=== PATIENT | female | born 1985 | race Caucasian/White ===

== ENCOUNTER 2018-03-23 22:47 | Observation (INO) | payer OTHER ==
--- NOTE | 2018-03-24 00:01 | XR ---
EXAMINATION TYPE: XR chest 2V DATE OF EXAM: 03/23/2018 COMPARISON: NONE HISTORY: Chest pain TECHNIQUE: Frontal and lateral views of the chest are obtained. FINDINGS: Heart and mediastinum are normal. Lungs are clear. Diaphragm is normal. Bony thorax is int act. IMPRESSION: Normal chest.
[2018-03-24 01:51] LABS: Basophils # (A) 0.1 k/uL (0-0.2); Basophils % (A) 1 %; Eosinophils # (A) 0.4 k/uL (0-0.7); Eosinophils % (A) 5 %; HCT 36.9 % (34.0-46.0); HGB 13.4 gm/dL (11.4-16.0); Lymphocytes # (A) 2.7 k/uL (1.0-4.8); Lymphocytes % (A) 32 %; MCH 32.1 pg (25.0-35.0); MCHC 36.2 g/dL (31.0-37.0); MCV 88.7 fL (80.0-100.0); Mean Platelet Volume 7.9; Monocytes # (A) 0.5 k/uL (0-1.0); Monocytes % (A) 6 %; Neutrophils # (A) 4.6 k/uL (1.3-7.7); Neutrophils % (A) 55 %; Platelet Count 211 k/uL (150-450); RBC 4.16 m/uL (3.80-5.40); RDW 13.3 % (11.5-15.5); WBC 8.4 k/uL (3.8-10.6)
[2018-03-24 02:07] LABS: D-Dimer 0.45 mg/L FEU (<0.60); Partial Thromboplastin Time 23.6 sec (22.0-30.0); Prothrombin Time 9.9 sec (9.0-12.0)
[2018-03-24 02:08] LABS: ALT 34 U/L (9-52); AST 30 U/L (14-36); Albumin 4.5 g/dL (3.5-5.0); Alkaline Phosphatase 46 U/L (38-126); Anion Gap 14 mmol/L; Blood Urea Nitrogen 12 mg/dL (7-17); Calcium 9.3 mg/dL (8.4-10.2); Carbon Dioxide 22 mmol/L (22-30); Chloride 104 mmol/L (98-107); Glucose 98 mg/dL (74-99); Potassium 4.2 mmol/L (3.5-5.1); Sodium 140 mmol/L (137-145); Total Bilirubin 0.5 mg/dL (0.2-1.3); Total Protein 7.6 g/dL (6.3-8.2)
[2018-03-24 02:18] LABS: Creatine Kinase 47 U/L (30-135)
[2018-03-24 02:28] LABS: Creatine Kinase MB 0.3 ng/mL (0.0-2.4)
[2018-03-24 02:32] LABS: Troponin I <0.012 ng/mL (0.000-0.034)
--- NOTE | 2018-03-24 03:40 | ED ---
Chest Pain HPI - General Chief Complaint: Chest Pain Stated Complaint: Chest pain Time Seen by Provider: 03/24/18 01:16 Source: patient Mode of arrival: ambulatory Limitations: no limitations - History of Present Illness Initial Comments: Early 2 years old female complains about chest pain she said chest pain ongoing for about a month now he got worse today now she said it is worse with deep breaths she denies any history of pulmonary embolism she denies any history of DVT no history of diabetes or hypertension she does not smoke he denies any use of tobacco control pills fever no chills she is not bringing up any phlegm and no trauma to the chest as well - Related Data Previous Rx's Medication Instructions Recorded Ibuprofen [Motrin] 600 mg PO Q6HR PRN #20 tab 11/19/15 Allergies Allergy/AdvReac Type Severity Reaction Status Date / Time aspirin Allergy Unknown Verified 03/23/18 23:39 cough medication Allergy Unknown Uncoded 03/23/18 23:39 Review of Systems ROS Statement: Those systems with pertinent positive or pertinent negative responses have been documented in the HPI. ROS Other: All systems not noted in ROS Statement are negative. EKG Findings - EKG Comments: EKG Findings:: EKG is a sinus bradycardia ventricular rate is 52 AR interval is 138 QRS duration is 100 QT/QTc is 44/383 review of this EKG rules out any STEMI noticed some T-wave inversion is quite symmetrically V1 and V2 is somewhat tall T waves in now V4 V5 and V6 Past Medical History Past Medical History: No Reported History History of Any Multi-Drug Resistant Organisms: None Reported Past Surgical History: Section, Cholecystectomy Past Psychological History: No Psychological Hx Reported Smoking Status: Never smoker Past Alcohol Use History: Occasional Past Drug Use History: None Reported General Exam - General Exam Comments Initial Comments: General: The patient is awake and alert, in no distress, and does not appear acutely ill. Skin: Skin is warm and dry and no rashes or lesions are noted. Eye: Pupils are equal, round and reactive to light, extra-ocular movements are intact; there is normal conjunctiva bilaterally. Ears, nose, mouth and throat: There are moist mucous membranes and no oral lesions. Neck: The neck is supple, there is no tenderness or JVD. Cardiovascular: There is a regular rate and rhythm. No murmur, rub or gallop is appreciated. Respiratory: To auscultation bilateral, no wheezing no rhonchi no distress respiratory rivera noticed Gastrointestinal: Soft, non-distended, non-tender abdomen without masses or organomegaly noted. There is no rebound or guarding present. Bowel sounds are unremarkable. Back: There is no tenderness to palpation in the midline. There is no obvious deformity. Musculoskeletal: Normal ROM, no tenderness, There is no pedal edema. There is no calf tenderness or swelling. No cords were appreciated. Neurological: CN II-XII intact, Cranial nerves III through XII are intact. There are no obvious motor or sensory deficits. Coordination appears grossly intact. Speech is normal. Psychiatric: Cooperative, appropriate mood & affect, normal judgment. Limitations: no limitations Course Vital Signs 03/23/18 03/24/18 03/24/18 23:37 01:13 01:16 Temperature 98.5 F Pulse Rate 57 L 61 Respiratory 18 16 16 Rate Blood Pressure 139/72 118/66 O2 Sat by Pulse 100 100 Oximetry 03/24/18 03/24/18 02:14 03:05 Temperature 97.5 F L 97.8 F Pulse Rate 48 L 63 Respiratory 16 16 Rate Blood Pressure 118/66 98/64 O2 Sat by Pulse 100 97 Oximetry Upon reassessment noticed she still has a pain 3/10 and d-dimer is unremarkable CBC, CMP, troponin, chest x-ray are absolutely unremarkable review of this EKG reveals some T-wave inversion in lead V1 and V2 considering she still has chest pain and some EKG changes on admit her observation consult cardiology she be admitted to Dr. Collier and cardiology be consulted Disposition Clinical Impression: Chest pain Disposition: ADMITTED IP TO THIS HOSP Condition: Good Referrals: Feliciano Crawley DO [Primary Care Provider] - 1-2 days
[2018-03-24] MEDS ORDERED: MORPHINE SULFATE 2 MG/ML SYRINGE IVP PRN (03:47)
[2018-03-24] MEDS ORDERED: NITROGLYCERIN SL TABS 0.4 MG TAB SUBLINGUAL PRN (03:47)
[2018-03-24 05:13] VITALS: BMI 30.9
--- NOTE | 2018-03-24 07:01 | P.CRDCN ---
History of Present Illness Consult reason: chest pain History of present illness: 32-year-old female presenting with recurrent chest discomfort in the right infraclavicular area, recurrent and getting worse especially with taking a deep breath and going through to the back in the scapular area on the right side. Denies any abdominal pain or any abdominal symptoms. She does have a cough No cardiac history no hypertension diabetes Family history of coronary artery disease, premature Heart sounds are normal Labs are reviewed and are normal first cardiac enzyme is normal d-dimer is normal Suggest Serial cardiac enzymes Repeat ECG 2-D echo and Doppler study Evaluate for noncardiac causes of right-sided atypical chest discomfort per internal medicine Past Medical History Past Medical History: Asthma History of Any Multi-Drug Resistant Organisms: None Reported Past Surgical History: Section, Cholecystectomy Past Anesthesia/Blood Transfusion Reactions: No Reported Reaction Past Psychological History: No Psychological Hx Reported Smoking Status: Never smoker Past Alcohol Use History: Occasional Past Drug Use History: None Reported - Past Family History Father Family Medical History: CVA/TIA, Myocardial Infarction ([place]) Additional Family Medical History / Comment(s): [place] at age late 40's Medications and Allergies Home Medications Medication Instructions Recorded Confirmed Type Ibuprofen [Motrin] 600 mg PO Q6HR PRN #20 tab 11/19/15 03/24/18 Rx Allergies Allergy/AdvReac Type Severity Reaction Status Date / Time aspirin Allergy Severe Anaphylaxis Verified 03/24/18 05:13 cough medication Allergy Severe Anaphylaxis Uncoded 03/24/18 05:13 Physical Exam Vitals: Vital Signs Temp Pulse Pulse Resp BP BP Pulse Ox 03/24/18 05:23 58 L 16 03/24/18 04:40 98.2 F 73 16 106/70 99 03/24/18 04:10 97.8 F 67 15 104/68 98 03/24/18 03:05 97.8 F 63 16 98/64 97 03/24/18 02:14 97.5 F L 48 L 16 118/66 100 03/24/18 01:16 61 16 118/66 100 03/24/18 01:13 16 03/23/18 23:37 98.5 F 57 L 18 139/72 100 Intake and Output 03/23/18 03/24/18 03/24/18 22:59 06:59 14:59 Other: # Voids 1 Weight 81.647 kg Results 03/24/18 01:20 03/24/18 01:20 Cardiac Enzymes 03/24/18 03/24/18 Range/Units 01:20 01:20 AST 30 (14-36) U/L CK-MB (CK-2) 0.3 (0.0-2.4) ng/mL Troponin I <0.012 (0.000-0.034) ng/mL Coagulation 03/24/18 Range/Units 01:20 PT 9.9 (9.0-12.0) sec APTT 23.6 (22.0-30.0) sec CBC 03/24/18 Range/Units 01:20 WBC 8.4 (3.8-10.6) k/uL RBC 4.16 (3.80-5.40) m/uL Hgb 13.4 (11.4-16.0) gm/dL Hct 36.9 (34.0-46.0) % Plt Count 211 (150-450) k/uL Comprehensive Metabolic Panel 03/24/18 Range/Units 01:20 Sodium 140 (137-145) mmol/L Potassium 4.2 (3.5-5.1) mmol/L Chloride 104 (98-107) mmol/L Carbon Dioxide 22 (22-30) mmol/L BUN 12 (7-17) mg/dL Creatinine 0.70 (0.52-1.04) mg/dL Glucose 98 (74-99) mg/dL Calcium 9.3 (8.4-10.2) mg/dL AST 30 (14-36) U/L ALT 34 (9-52) U/L Alkaline Phosphatase 46 (38-126) U/L Total Protein 7.6 (6.3-8.2) g/dL Albumin 4.5 (3.5-5.0) g/dL Current Medications Generic Name Dose Route Start Last Admin Trade Name Freq PRN Reason Stop Dose Admin Morphine Sulfate 2 mg 03/24/18 03:47 Morphine Sulfate (Inj) IVP Q5M PRN Chest Pain Nitroglycerin 0.4 mg 03/24/18 03:47 Nitrostat SUBLINGUAL Q5M PRN Chest Pain Intake and Output 03/23/18 03/24/18 03/24/18 22:59 06:59 14:59 Other: # Voids 1 Weight 81.647 kg 03/24/18 01:20 03/24/18 01:20
--- NOTE | 2018-03-24 09:14 | P.CRDCN ---
History of Present Illness History of present illness: Mrs. Jensen is a pleasant 32-year-old female past medical history significant for asthma. She denies history of coronary artery disease, hypertension, dyslipidemia or diabetes mellitus. She does have family history of premature heart disease. We've asked to see her in consultation for complaints of chest discomfort. She states she has these pains intermittently over the previous month or so. The pain is located in the right clavicle region and radiates through to the right scapula. The pain is described as sharp and is associated with shortness of breath. The pain comes on with no specific aggravating factor. Yesterday morning she noticed the pain starting in persisted throughout the day which prompted her to seek medical attention. She denies associated dizziness, palpitations, nausea, vomiting or diaphoresis. The pain is made worse with deep inspiration, coughing or sneezing. The pain subsided once she arrived to the hospital and has not returned since. EKG reveals sinus mechanism heart rate 52 with nonspecific T-wave abnormality. No acute ST depression or elevation. Chest x-ray is negative for an acute cardiopulmonary process. Laboratory data reviewed, hemoglobin 13.4, platelets 211, d-dimer 0.45, sodium 140, potassium 4.2, magnesium 2.0, creatinine 0.7, cardiac enzymes negative 1. She takes no daily medications. Review of Systems At the time of my exam: CONSTITUTIONAL: Denies fever. Denies chills. EYES: Denies blurred vision. Denies vision changes. Denies eye pain. EARS, NOSE, MOUTH & THROAT: Denies headache. Denies sore throat. Denies ear pain. CARDIOVASCULAR: Denies chest pain. Denies shortness of breath. Denies orthopnea. Denies PND. Denies palpitations. RESPIRATORY: Denies cough. GASTROINTESTINAL: Denies abdominal pain. Denies diarrhea. Denies constipation. Denies nausea. Denies vomiting. MUSCULOSKELETAL: Denies myalgias. INTEGUMENTARY: Denies pruitis. Denies rash. NEUROLOGIC: Denies numbness. Denies tingling. Denies weakness. PSYCHIATRIC: Denies anxiety. Denies depression. ENDOCRINE: Denies fatigue. Denies weight change. Denies polydipsia. Denies polyurina. GENITOURINARY: Denies burning, hematuria or urgency with micturation. HEMATOLOGIC: Denies history of anemia. Denies bleeding. Past Medical History Past Medical History: Asthma History of Any Multi-Drug Resistant Organisms: None Reported Past Surgical History: Section, Cholecystectomy Past Anesthesia/Blood Transfusion Reactions: No Reported Reaction Past Psychological History: No Psychological Hx Reported Smoking Status: Never smoker Past Alcohol Use History: Occasional Past Drug Use History: None Reported - Past Family History Father Family Medical History: CVA/TIA, Myocardial Infarction ([place]) Additional Family Medical History / Comment(s): [place] at age late 40's Medications and Allergies Home Medications Medication Instructions Recorded Confirmed Type Ibuprofen [Motrin] 600 mg PO Q6HR PRN #20 tab 11/19/15 03/24/18 Rx Allergies Allergy/AdvReac Type Severity Reaction Status Date / Time aspirin Allergy Severe Anaphylaxis Verified 03/24/18 08:53 cough medication Allergy Severe Anaphylaxis Uncoded 03/24/18 05:13 Physical Exam Vitals: Vital Signs Temp Pulse Pulse Pulse Resp BP BP 03/24/18 08:00 98.0 F 62 14 104/55 03/24/18 05:23 58 L 16 03/24/18 04:40 98.2 F 73 16 106/70 03/24/18 04:10 97.8 F 67 15 104/68 03/24/18 03:05 97.8 F 63 16 98/64 03/24/18 02:14 97.5 F L 48 L 16 118/66 03/24/18 01:16 61 16 118/66 03/24/18 01:13 16 03/23/18 23:37 98.5 F 57 L 18 139/72 Pulse Ox 03/24/18 08:00 99 03/24/18 05:23 03/24/18 04:40 99 03/24/18 04:10 98 03/24/18 03:05 97 03/24/18 02:14 100 03/24/18 01:16 100 03/24/18 01:13 03/23/18 23:37 100 Intake and Output 03/23/18 03/24/18 03/24/18 22:59 06:59 14:59 Other: # Voids 1 Weight 81.647 kg Blood pressure 104/55 heart rate 62 afebrile maintaining oxygen saturation on room air GENERAL: This is a 32-year-old female in no apparent distress at the time of my examination. HEENT: Head is atraumatic, normocephalic. Pupils are equal, round. Sclerae anicteric. Conjunctivae are clear. Mucous membranes of the mouth are moist. Neck is supple. There is no jugular venous distention. No carotid bruit is heard. LUNGS: Clear to auscultation no wheezes, rales or rhonchi. No chest wall tenderness is noted on palpation or with deep breathing. HEART: Regular rate and rhythm without murmurs, rubs or gallops. S1 and S2 heard. ABDOMEN: Soft, nontender. Bowel sounds are heard. No organomegaly noted. EXTREMITIES: No evidence of peripheral edema and no calf tenderness noted. VASCULAR: Radial and dorsalis pedis pulses palpated, no evidence of clubbing. NEUROLOGIC: Patient is awake, alert and oriented x3. Results 03/24/18 01:20 03/24/18 01:20 Cardiac Enzymes 03/24/18 03/24/18 Range/Units 01:20 01:20 AST 30 (14-36) U/L CK-MB (CK-2) 0.3 (0.0-2.4) ng/mL Troponin I <0.012 (0.000-0.034) ng/mL Coagulation 03/24/18 Range/Units 01:20 PT 9.9 (9.0-12.0) sec APTT 23.6 (22.0-30.0) sec CBC 03/24/18 Range/Units 01:20 WBC 8.4 (3.8-10.6) k/uL RBC 4.16 (3.80-5.40) m/uL Hgb 13.4 (11.4-16.0) gm/dL Hct 36.9 (34.0-46.0) % Plt Count 211 (150-450) k/uL Comprehensive Metabolic Panel 03/24/18 Range/Units 01:20 Sodium 140 (137-145) mmol/L Potassium 4.2 (3.5-5.1) mmol/L Chloride 104 (98-107) mmol/L Carbon Dioxide 22 (22-30) mmol/L BUN 12 (7-17) mg/dL Creatinine 0.70 (0.52-1.04) mg/dL Glucose 98 (74-99) mg/dL Calcium 9.3 (8.4-10.2) mg/dL AST 30 (14-36) U/L ALT 34 (9-52) U/L Alkaline Phosphatase 46 (38-126) U/L Total Protein 7.6 (6.3-8.2) g/dL Albumin 4.5 (3.5-5.0) g/dL Current Medications Generic Name Dose Route Start Last Admin Trade Name Freq PRN Reason Stop Dose Admin Morphine Sulfate 2 mg 03/24/18 03:47 Morphine Sulfate (Inj) IVP Q5M PRN Chest Pain Nitroglycerin 0.4 mg 03/24/18 03:47 Nitrostat SUBLINGUAL Q5M PRN Chest Pain Intake and Output 03/23/18 03/24/18 03/24/18 22:59 06:59 14:59 Other: # Voids 1 Weight 81.647 kg 03/24/18 01:20 03/24/18 01:20 Assessment and Plan Assessment: ASSESSMENT 1. Pleuritic chest pain, atypical for acute coronary event. 2. History of asthma PLAN Continue to obtain serial cardiac enzymes to rule out an acute coronary events. Obtain 2-D echocardiogram and Doppler study to assess cardiac structure and function. May feed the patient. Increase activity and assess for ongoing symptoms of chest discomfort. Thank you kindly for this consultation. Nurse Practitioner note has been reviewed, I agree with a documented findings and plan of care. Patient was seen and examined.
[2018-03-24 09:50] LABS: Cholesterol 148 mg/dL (<200); HDL Cholesterol 46 mg/dL (40-60); LDL Cholesterol,Calculated 92 mg/dL (0-99); Triglycerides 51 mg/dL (<150)
[2018-03-24 10:03] LABS: Creatine Kinase 36 U/L (30-135)
[2018-03-24 10:16] LABS: Creatine Kinase MB 0.2 ng/mL (0.0-2.4); Troponin I <0.012 ng/mL (0.000-0.034)
--- NOTE | 2018-03-24 10:41 | ECHOF ---
Referral Reason:chest pain MEASUREMENTS -------- HEIGHT: 162.6 cm WEIGHT: 81.7 kg BP: 106/70 RVIDd: 2.9 cm (< 3.3) IVSd: 1.0 cm (0.6 - 1.1) LVIDd: 4.5 cm (3.9 - 5.3) LVPWd: 1.0 cm (0.6 - 1.1) IVSs: 1.5 cm LVIDs: 3.0 cm LVPWs: 1.4 cm LA Diam: 3.0 cm (2.7 - 3.8) LAESV Index (A-L): 30.63 ml/m Ao Diam: 2.8 cm (2.0 - 3.7) AV Cusp: 2.0 cm (1.5 - 2.6) MV EXCURSION: 17.766 mm (> 18.000) MV EF SLOPE: 122 mm/s (70 - 150) EPSS: 0.4 cm MV E Stomr: 1.09 m/s MV DecT: 227 ms MV A Storm: 0.56 m/s MV E/A Ratio: 1.96 RAP: 5.00 mmHg RVSP: 23.43 mmHg FINDINGS -------- Sinus rhythm. This was a technically good study. The left ventricular size is normal. Left ventricular wall thickness is normal. Overall left vent ricular systolic function is normal with, an EF between 60 - 65 %. The right ventricle is normal in size. The left atrial size is normal. The right atrium is normal in size. 3 ml of Lumason was utilized for enhancement of images. The aortic valve is trileaflet and appears structurally normal. The mitral valve is normal. Mild tricuspid regurgitation present. Right ventricular systolic pressure is normal at < 35 mmHg. There is no pulmonic regurgitation present. The aortic root size is normal. Normal inferior vena cava with normal inspiratory collapse consistent with estimated right atrial pre ssure of 5 mmHg. There is no pericardial effusion. CONCLUSIONS -------- 1. Sinus rhythm. 2. This was a technically good study. 3. The left ventricular size is normal. 4. Left ventricular wall thickness is normal. 5. Overall left ventricular systolic function is normal with, an EF between 60 - 65 %. 6. The right ventricle is normal in size. 7. The left atrial size is normal. 8. The right atrium is normal in size. 9. 3 ml of Lumason was utilized for enhancement of images. 10. The aortic valve is trileaflet and appears structurally normal. 11. The mitral valve is normal. 12. Mild tricuspid regurgitation present. 13. Right ventricular systolic pressure is normal at < 35 mmHg. 14. There is no pulmonic regurgitation present. 15. The aortic root size is normal. 16. Normal inferior vena cava with normal inspiratory collapse consistent with estimated right atrial pressure of 5 mmHg. 17. There is no pericardial effusion. MAGICIAN/ILLUSIONIST: Haylee Bautista RDCS
[2018-03-24 12:23] VITALS: RESP 16; TEMP 98.1
[2018-03-24] MEDS ORDERED: LORATADINE-PSEUDOEPH 5-120 MG 1 EACH TAB.ER.12H PO SCH (13:00)
--- NOTE | 2018-03-24 13:14 | CT ---
EXAMINATION TYPE: CT angio chest DATE OF EXAM: 03/24/2018 COMPARISON: NONE HISTORY: Right sided chest pain with shortness of breath CT DLP: 293.4 mGycm. Automated Exposure Control for Dose Reduction was Utilized. CONTRAST: CTA scan of the thorax is performed with IV Contrast, patient injected with 100 mL of Isovue 370, pul monary embolism protocol. MIP Images are created on CT scanner and reviewed. FINDINGS: LUNGS: The lungs are grossly clear, there is no concerning parenchymal mass or nodule identified. The re is minimal bibasilar subsegmental dependent atelectasis noted. There is no pleural effusion or pn eumothorax seen. The tracheobronchial tree is patent. MEDIASTINUM: There is satisfactory enhancement of the pulmonary artery and its branches, there is no CT evidence for pulmonary embolism. There are no greater than 1 cm hilar or mediastinal lymph nodes. No cardiomegaly or pericardial effusion is seen. OTHER: There is a 2 mm nonobstructing left midpole renal calculus. Surgical clips are noted within th e gallbladder fossa with another solitary surgical clip in the hepatorenal fossa. IMPRESSION: No evidence of pulmonary embolism. No focal consolidation, pleural effusion or pneumothor ax. Minimal bibasilar subsegmental dependent atelectasis.
[2018-03-24] MEDS ORDERED: ONDANSETRON 4 MG/2 ML VIAL IVP STA (14:54)
[2018-03-24 15:06] LABS: Creatine Kinase 98 U/L (30-135)
[2018-03-24 15:20] LABS: Creatine Kinase MB 1.9 ng/mL (0.0-2.4); Troponin I <0.012 ng/mL (0.000-0.034)
[2018-03-24 16:09] VITALS: BP 96/46; PULSE 63
--- NOTE | 2018-03-24 17:48 | HP ---
HISTORY AND PHYSICAL HISTORY AND PHYSICAL AND DISCHARGE SUMMARY: DATE OF ADMISSION: 03/24/2018 DATE OF DISCHARGE: 03/24/2018 PRESENTING COMPLAINT: Chest pain. HISTORY OF PRESENTING COMPLAINT: This is a very pleasant 32-year-old patient of Dr. Crawley in rather good health. Patient's chronic medical conditions include asthma, present in childhood, and allergic rhinitis and seasonal allergies. Patient has had a stuffy nose for a few days, slight cough. Patient noticed that she started having right-sided upper chest pain, especially with sneezing and deep breathing, getting worse. Patient's symptoms started about a month ago and progressively got worse. She was concerned about a cardiac cause and decided to come in for further cardiac workup. There was no left precordial pain not related to exertion, and no radiation otherwise. Patient was admitted for the same. REVIEW OF SYSTEMS: CONSTITUTIONAL: Tired. HEENT: Nasal stuffiness. RESPIRATORY: As above. Slight cough. CARDIOVASCULAR: No precordial pain. GASTROINTESTINAL: None. GENITOURINARY: None. MUSCULOSKELETAL: None. DERMATOLOGICAL: None. HEMATOLOGICAL: None. LYMPHATICS: None. PSYCHIATRY: None. NEUROLOGICAL: None. PAST MEDICAL HISTORY: 1. Asthma. 2. Allergic rhinitis. 3. Seasonal allergies. PAST SURGICAL HISTORY: 1. . 2. Cholecystectomy. SOCIAL HISTORY: No smoking. Alcohol occasionally. Has 3 children at home. 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 FAMILY HISTORY: Stroke, heart attack. HOME MEDICATIONS: Motrin 600 mg q.6 p.r.n. ALLERGIES: 1. ASPIRIN. 2. COUGH MEDICATION. PHYSICAL EXAMINATION: VITAL SIGNS ON PRESENTATION: Temperature 98.5, pulse 57, respiration 18, blood pressure 139/72, pulse ox 100% on room air. GENERAL APPEARANCE: Well built; BMI 30.9. Lying in bed, tired-appearing. EYES: Pupils equal. Conjunctivae normal. HEENT: External appearance of nose and ears normal. Oral cavity normal. NECK: JVD not raised. Mass not palpable. RESPIRATORY: Effort normal. LUNGS: Fair air entry. CARDIOVASCULAR: First and second sounds normal. No edema. ABDOMEN: Soft, nontender. Liver and spleen not palpable. LYMPHATIC: No lymph node palpable in neck or axillae. PSYCHIATRY: Alert and oriented x3. Mood and affect normal. NEUROLOGICAL: Pupils equal. Cranial nerves grossly intact. Power and sensation grossly intact. INVESTIGATIONS: White count 8.4, hemoglobin 13.4. D-dimer 0.45 and 0.67. Potassium 4.2. Troponin x3 negative. EKG normal sinus rhythm. Chest CTA negative for PE. Two-D echocardiogram: good wall motion; no abnormality. Chest x-ray normal. ASSESSMENT: 1. Acute right-sided pleurisy pain, likely viral in nature. 2. Intermittent asthma. 3. Allergic rhinitis. 4. Obesity with body mass index of 30.9. PLAN: Cardiology was consulted. PE was ruled out. Two-D echo was normal. The patient's symptoms are more compatible with acute pleurisy, viral in nature. Patient will be started on Claritin-D. Care was discussed with the patient. Questions were answered. DISCHARGE MEDICATION: Claritin-D 5/120 one tablet twice a day; 14 tablets. FOLLOWUP: Follow up with Dr. Crawley in 3 days. CONSULTATION: Dr. James Pineda from Cardiology. MMLYRICL / ROXANEN: [id number] /
== END 2018-03-24 19:10 | disposition home or self-care (01) ==
LOC: EC 22:47 → 3OBS 03-24 03:48
PROVIDERS: ADMIT Hospitalist; ATTEND Hospitalist
DX: R09.1 Pleurisy (principal); J45.20 Mild intermittent asthma, uncomplicated; E66.9 Obesity, unspecified; Z68.30 Body mass index [BMI] 30.0-30.9, adult; Z82.49 Family history of ischemic heart disease and other diseases of the circulatory system; Z82.3 Family history of stroke; Z88.6 Allergy status to analgesic agent; Z88.8 Allergy status to other drugs, medicaments and biological substances; Z90.49 Acquired absence of other specified parts of digestive tract
CPT/HCPCS: 99285 ×2; 96374; 36415; 93005; 93306; 85379; 80061; 80053; 82550; 82553; 83735; 84484; 85025; 85610; 85730; 71046; 71275; G0378; J2405; Q9950; Q9967

== ENCOUNTER → 2020-02-22 | Outpatient (CLI) | payer OTHER ==
--- NOTE | 2020-02-22 10:15 | XR ---
EXAMINATION TYPE: XR wrist complete RT DATE OF EXAM: 02/22/2020 CLINICAL HISTORY: Right wrist pain after fall TECHNIQUE: Frontal, lateral and oblique images of the right wrist are obtained. Scaphoid view was al so obtained. COMPARISON: None FINDINGS: There is no acute fracture/dislocation evident in the right wrist. The joint spaces in th e right wrist appear within normal limits. The overlying soft tissue appears unremarkable. IMPRESSION: There is no acute fracture or dislocation in the right wrist.
== END | disposition home or self-care (01) ==
LOC: RADXRMAIN 09:55
PROVIDERS: ATTEND Family Medicine
DX: M25.531 Pain in right wrist (principal)

== ENCOUNTER → 2021-12-09 | Outpatient (CLI) | payer OTHER ==
--- NOTE | 2021-12-10 14:12 | MM ---
Reason for exam: screening (asymptomatic). Baseline mammogram. History: Family history of breast cancer in mother. Took hormonal contraceptives for 4 years. Physical Findings: Nurse did not find any significant physical abnormalities on exam. MG 3D Screening Mammo W/Cad Bilateral CC and MLO view(s) were taken. The breast tissue is heterogeneously dense. This may lower the sensitivity of mammography. There is no discrete abnormality. ASSESSMENT: Negative, BI-RAD 1 RECOMMENDATION: Routine screening mammogram of both breasts in 1 year.
== END | disposition home or self-care (01) ==
LOC: RADMAMWWP 11:04
PROVIDERS: ATTEND Family Medicine
DX: Z12.39 Encounter for other screening for malignant neoplasm of breast (principal)
CPT/HCPCS: 77063; 77067

== ENCOUNTER 2022-04-10 12:39 | Emergency (ER) | payer OTHER ==
[2022-04-10 12:47] VITALS: PULSE 61
[2022-04-10] MEDS ORDERED: ONDANSETRON 4 MG/2 ML VIAL IVP STA (13:45)
[2022-04-10] MEDS ORDERED: SODIUM CHLORIDE 0.9% 2,000 ML IV STA (13:45)
[2022-04-10] MEDS ORDERED: MORPHINE SULFATE 4 MG/ML SYRINGE IVP STA (13:48)
[2022-04-10 14:26] LABS: ALT 20 U/L (4-34); AST 23 U/L (14-36); African American GFR (CKD) >90 (>60 ml/min/1.73 sqM); Albumin 4.5 g/dL (3.5-5.0); Alkaline Phosphatase 57 U/L (38-126); Anion Gap 9 mmol/L; Blood Urea Nitrogen 11 mg/dL (7-17); Calcium 9.2 mg/dL (8.4-10.2); Carbon Dioxide 21 mmol/L (22-30); Chloride 108 mmol/L (98-107); Glucose 99 mg/dL (74-99); Lipase 48 U/L (23-300); Non-African American GFR(CKD) >90 (>60 ml/min/1.73 sqM); Potassium 3.6 mmol/L (3.5-5.1); Sodium 138 mmol/L (137-145); Total Bilirubin 1.2 mg/dL (0.2-1.3); Total Protein 7.4 g/dL (6.3-8.2)
--- NOTE | 2022-04-10 14:32 | CT ---
EXAMINATION TYPE: CT abdomen pelvis wo con DATE OF EXAM: 04/10/2022 COMPARISON: None HISTORY: left flank pain CT DLP: 599.7 mGycm Automated exposure control for dose reduction was used. Images obtained from the diaphragm to the floor the pelvis without contrast. The lung bases are clear. No pleural effusion. Heart size is normal. No pericardial effusion. Liver spleen and stomach pancreas appear intact. The bile ducts are not dilated. There are clips from cholecystectomy. There is no adrenal mass. Kidneys have normal size. There is 2 mm calculus lower pole right kidney. T here is mild left-sided hydronephrosis and hydroureter. There is a 3 mm obstructing calculus in the l ower left ureter. The bladder distends smoothly. No inguinal hernia. Uterus is anteverted. There is s mall amount of low-density free fluid in the pelvis. No pelvic mass. The appendix is posterior and ap pears normal. No mesenteric edema. No ascites or free air. No bowel obstruction. There is some lipoma tosis of the right colon. The lumbar vertebrae have normal alignment. Posterior elements are intact. No compression fracture. B mann pelvis is intact. Hip joints are intact. IMPRESSION: Small obstructing calculus distal left ureter with mild left-sided hydronephrosis and hydroureter. No nobstructing right-sided renal calculus. Small amount of low-density free fluid in the pelvis could b e physiologic.
[2022-04-10 14:45] LABS: Basophils % (A) 0 %; Eosinophils # (A) 0.1 k/uL (0-0.7); Eosinophils % (A) 1 %; HCT 35.3 % (34.0-46.0); HGB 12.7 gm/dL (11.4-16.0); Lymphocytes # (A) 0.9 k/uL (1.0-4.8); Lymphocytes % (A) 12 %; MCH 32.8 pg (25.0-35.0); MCV 91.1 fL (80.0-100.0); Mean Platelet Volume 8.7; Monocytes # (A) 0.3 k/uL (0-1.0); Monocytes % (A) 4 %; Neutrophils # (A) 6.3 k/uL (1.3-7.7); Neutrophils % (A) 81 %; Platelet Count 193 k/uL (150-450); RBC 3.88 m/uL (3.80-5.40); RDW 13.1 % (11.5-15.5); WBC 7.7 k/uL (3.8-10.6)
[2022-04-10 15:03] LABS: Appearance,Urine Cloudy (Clear); Bilirubin,Urine Negative (Negative); Blood,Urine Large (Negative); Color,Urine Light Red; Glucose,Urine (UA) Negative (Negative); Ketones,Urine 3+ (Negative); Leukocyte Esterase,Urine Negative (Negative); Mucus,Urine Occasional /hpf; Nitrite,Urine Negative (Negative); Protein,Urine 1+ (Negative); RBC,Urine >182 /hpf (0-5); Squamous Epithelial Cell,Urine 2 /hpf (0-4); Urobilinogen,Urine <2.0 mg/dL (<2.0); WBC,Urine 1 /hpf (0-5)
[2022-04-10] MEDS ORDERED: TAMSULOSIN 0.4 MG CAP.ER.24H PO STA (15:03)
--- NOTE | 2022-04-10 15:08 | ED ---
Abdominal Pain HPI - General Chief Complaint: Abdominal Pain Stated Complaint: Right lower abd pain, arm & leg numbness Time Seen by Provider: 04/10/22 13:24 Source: patient Mode of arrival: wheelchair Limitations: no limitations - History of Present Illness Initial Comments: Patient is a 36-year-old female who presents to the emergency department with a chief complaint of left flank pain. Patient started abruptly this afternoon. Pain is constant but ranges in severity with radiation to the left back. Patient had a few episodes of nausea and vomiting. Denies fever, chills, and burning with urination. Admits to blood in the urine however states she is on menstrual period. Denies history of kidney stone and infection. - Related Data Previous Rx's Medication Instructions Recorded HYDROcodone/APAP 10-325MG [[place] 1 tab PO Q4HR PRN 3 Days #18 tab 04/10/22 10-325] Ondansetron Odt [Zofran Odt] 4 mg PO Q8HR PRN 7 Days #21 tab 04/10/22 Tamsulosin [Flomax] 0.4 mg PO DAILY 7 Days #7 cap 04/10/22 Allergies Allergy/AdvReac Type Severity Reaction Status Date / Time aspirin Allergy Severe Anaphylaxis Verified 04/10/22 14:51 cough medication Allergy Severe Anaphylaxis Uncoded 04/10/22 12:47 Review of Systems ROS Statement: Those systems with pertinent positive or pertinent negative responses have been documented in the HPI. ROS Other: All systems not noted in ROS Statement are negative. Past Medical History Past Medical History: Asthma History of Any Multi-Drug Resistant Organisms: None Reported Past Surgical History: Section, Cholecystectomy Past Anesthesia/Blood Transfusion Reactions: No Reported Reaction Past Psychological History: No Psychological Hx Reported Smoking Status: Never smoker Past Alcohol Use History: Rare Past Drug Use History: Marijuana - Past Family History Father Family Medical History: CVA/TIA, Myocardial Infarction ([place]) Additional Family Medical History / Comment(s): [place] at age late 40's General Exam Limitations: no limitations General appearance: alert, in no apparent distress Head exam: Present: atraumatic, normocephalic, normal inspection Eye exam: Present: normal appearance, PERRL, EOMI. Absent: scleral icterus, conjunctival injection, periorbital swelling Respiratory exam: Present: normal lung sounds bilaterally. Absent: respiratory distress, wheezes, rales, rhonchi, stridor Cardiovascular Exam: Present: regular rate, normal rhythm, normal heart sounds. Absent: systolic murmur, diastolic murmur, rubs, gallop, clicks GI/Abdominal exam: Present: soft, normal bowel sounds. Absent: distended, tenderness, guarding, rebound, rigid Back exam: Present: normal inspection, full ROM, CVA tenderness (L), paraspinal tenderness (left ) Neurological exam: Present: alert, oriented X3, CN II-XII intact Psychiatric exam: Present: normal affect, normal mood Skin exam: Present: warm, dry, intact, normal color. Absent: rash Course Vital Signs 04/10/22 04/10/22 12:43 15:37 Temperature 98 F 97.6 F Pulse Rate 61 61 Respiratory 18 16 Rate Blood Pressure 127/82 99/71 O2 Sat by Pulse 99 100 Oximetry Medical Decision Making - Medical Decision Making This is a 36-year-old female who presents with left flank pain, nausea, vomitin g. Thorough history and examination were performed. Patient appears to be in significant pain. There is left flank and left paravertebral muscle tenderness with palpation. The abdomen is soft and nontender. I have high suspicion for kidney stone. I'll obtain laboratory studies and CT of the abdomen and pelvis without contrast. Pain and nausea controlled. Labs relatively unremarkable. Patient has good kidney function. Large blood found on urinalysis. CT shows a small obstructing calculus at the distal left ureter with mild left-sided hydronephrosis and hydroureter. There is a nonobstructing right-sided renal calculus. Results discussed with patient. With controlled symptoms, good kidney function, and small stone, patient can manage symptoms at home. Patient has anaphylactic allergy to aspirin and possibly other anti-inflammatories so I will send her home with [place] for pain. Patient will also be sent home with Flomax and Zofran. She is instructed to follow up with urology in 1-2 days. Patient verbalizes understanding and is agreeable to this plan. She will be discharged with a urine strainer. Dr. Cannon is my attending. - Lab Data Result diagrams: 04/10/22 14:00 04/10/22 14:00 Lab Results 04/10/22 04/10/22 04/10/22 Range/Units 14:00 14:00 14:33 WBC 7.7 (3.8-10.6) k/uL RBC 3.88 (3.80-5.40) m/uL Hgb 12.7 (11.4-16.0) gm/dL Hct 35.3 (34.0-46.0) % MCV 91.1 (80.0-100.0) fL MCH 32.8 (25.0-35.0) pg MCHC 36.0 (31.0-37.0) g/dL RDW 13.1 (11.5-15.5) % Plt Count 193 (150-450) k/uL MPV 8.7 Neutrophils % 81 % Lymphocytes % 12 % Monocytes % 4 % Eosinophils % 1 % Basophils % 0 % Neutrophils # 6.3 (1.3-7.7) k/uL Lymphocytes # 0.9 L (1.0-4.8) k/uL Monocytes # 0.3 (0-1.0) k/uL Eosinophils # 0.1 (0-0.7) k/uL Basophils # 0.0 (0-0.2) k/uL Sodium 138 (137-145) mmol/L Potassium 3.6 (3.5-5.1) mmol/L Chloride 108 H (98-107) mmol/L Carbon Dioxide 21 L (22-30) mmol/L Anion Gap 9 mmol/L BUN 11 (7-17) mg/dL Creatinine 0.68 (0.52-1.04) mg/dL Est GFR (CKD-EPI)AfAm >90 (>60 ml/min/1.73 sqM) Est GFR (CKD-EPI)NonAf >90 (>60 ml/min/1.73 sqM) Glucose 99 (74-99) mg/dL Calcium 9.2 (8.4-10.2) mg/dL Total Bilirubin 1.2 (0.2-1.3) mg/dL AST 23 (14-36) U/L ALT 20 (4-34) U/L Alkaline Phosphatase 57 (38-126) U/L Total Protein 7.4 (6.3-8.2) g/dL Albumin 4.5 (3.5-5.0) g/dL Lipase 48 (23-300) U/L Urine Color Light Red Urine Appearance Cloudy H (Clear) Urine pH 8.0 (5.0-8.0) Ur Specific [place] 1.020 (1.001-1.035) Urine Protein 1+ H (Negative) Urine Glucose (UA) Negative (Negative) Urine Ketones 3+ H (Negative) Urine Blood Large H (Negative) Urine Nitrite Negative (Negative) Urine Bilirubin Negative (Negative) Urine Urobilinogen <2.0 (<2.0) mg/dL Ur Leukocyte Esterase Negative (Negative) Urine RBC >182 H (0-5) /hpf Urine WBC 1 (0-5) /hpf Ur Squamous Epith Cells 2 (0-4) /hpf Urine Mucus Occasional H (None) /hpf Disposition Clinical Impression: Nephrolithiasis, Hydronephrosis Disposition: HOME SELF-CARE Condition: Fair Instructions (If sedation given, give patient instructions): Kidney Stones (ED) Additional Instructions: Please take medication as directed. Increase fluid intake as much as possible as this will help you pass the stone. Follow up with urology in 1-2 days. Use strainer when urinating in effort to retrieve stone which should be taken to urology appointment. Identifying what type of stone you have will help identify what may be causing it. Return to the emergency department if you experience new, concerning, or worsening symptoms. Prescriptions: Tamsulosin [Flomax] 0.4 mg PO DAILY 7 Days #7 cap HYDROcodone/APAP 10-325MG [[place] 10-325] 1 tab PO Q4HR PRN 3 Days #18 tab PRN Reason: Pain Ondansetron Odt [Zofran Odt] 4 mg PO Q8HR PRN 7 Days #21 tab PRN Reason: Nausea Is patient prescribed a controlled substance at d/c from ED?: Yes Referrals: Feliciano Crawley DO [Primary Care Provider] - 1-2 days Gareth Louise MD [STAFF PHYSICIAN] - 1-2 days Time of Disposition: 15:07
[2022-04-10 15:38] VITALS: BP 99/71; RESP 16; TEMP 97.6
== END 2022-04-10 16:15 | disposition home or self-care (01) ==
LOC: EC 12:39
DX: N13.2 Hydronephrosis with renal and ureteral calculous obstruction (principal); J45.909 Unspecified asthma, uncomplicated; Z88.8 Allergy status to other drugs, medicaments and biological substances; Z88.6 Allergy status to analgesic agent
CPT/HCPCS: 36415; 80053; 83690; 85025; 81001; 74176; 99284; 96374; 96375; 96361; J2270; J2405

== ENCOUNTER → 2024-04-06 | Outpatient (CLI) | payer BC, OTHER ==
--- NOTE | 2024-04-08 17:16 | US ---
EXAMINATION TYPE: US pelvic limited DATE OF EXAM: 04/06/2024 COMPARISON: Pelvic ultrasound 11/30/2022, CT abdomen and pelvis 11/30/2022 CLINICAL INDICATION: Female, 38 years old with history of K61.1 Rectal Abscess; Pt states palpable claudia mp midline/left perineum TECHNIQUE: MULTIPLE GRAYSCALE AND COLOR DOPPLER ULTRASOUND IMAGES OF THE LEFT PERINEUM AT SITE OF ABN ORMALITY WERE OBTAINED. FINDINGS/IMPRESSION: Complex heterogenous and anechoic lesion within the soft tissues of the (now at the site of palpable abnormality. This measures 2.6 x 0.7 x 1.7 cm. There is appearance of funneling diving down towards the anal/rectal area. Posterior acoustic shadowing identified. No internal color flow demonstrated. No hyperemia identified. This complex lesion appears to represent a perineal abscess with possible fistula towards the anorect al area. Consider further evaluation with CT pelvis with IV contrast and surgical consultation.
== END | disposition home or self-care (01) ==
LOC: RADUSWWP 09:34
PROVIDERS: ATTEND Family Medicine
DX: K61.1 Rectal abscess (principal); L02.215 Cutaneous abscess of perineum
CPT/HCPCS: 76857

== ENCOUNTER 2024-05-30 10:12 | Emergency (ER) | payer OTHER ==
[2024-05-30] MEDS ORDERED: cefTRIAXone 1,000 MG VIAL (IM USE) IM ONE (10:56)
== END 2024-05-30 11:15 | disposition home or self-care (01) ==
LOC: EC 10:12
DX: L03.317 Cellulitis of buttock (principal)
CPT/HCPCS: 99282; 96372; J0696

== ENCOUNTER 2024-05-31 21:40 | Emergency (ER) | payer OTHER ==
[2024-05-31] MEDS ORDERED: LIDOCAINE 1% INJ 10MG/ML (20 ML MDV) ONE (22:16)
== END 2024-05-31 22:48 | disposition home or self-care (01) ==
LOC: EC 21:40
DX: L02.31 Cutaneous abscess of buttock (principal)
CPT/HCPCS: 10160; 99282

== ENCOUNTER → 2024-07-27 | Outpatient (CLI) | payer OTHER ==
--- NOTE | 2024-07-30 14:17 | MM ---
Reason for Exam: Screening (asymptomatic). Last mammogram was performed 2 year(s) and 8 month(s) ago. Patient History: Menarche at age 10. First Full-Term at age 15. Premenopausal. Patient used Hormonal Contraceptives for 4 years. Mother had breast cancer, age 30. Risk Values: Julissa 5 year model risk: 1.0%. NCI Lifetime model risk: 19.5%. Prior Study Comparison: 12/09/2021 Bilateral Screening Mammogram, [facility]. Tissue Density: The breasts are heterogeneously dense, which may obscure small masses. Findings: Analyzed By CAD. There is no suspicious group of microcalcifications or new suspicious mass in either breast. Overall Assessment: Negative, BI-RAD 1 Management: Screening Mammogram of both breasts in 1 year. . Patient should continue monthly self-breast exams. A clinical breast exam by your physician is recommended on an annual basis. This exam should not preclude additional follow-up of suspicious palpable abnormalities. Note on Julissa scores and lifetime risk: 1. A Julissa score greater than 3% is considered moderate risk. If this is the case, consider specialist referral to assess eligibility for a risk reducing agent. 2. If overall lifetime risk for the development of breast cancer is 20% or higher, the patient may qualify for future screening with alternating mammogram and breast MRI. [facility], , 07/30/2024 2:13 PM. Electronically signed and approved by: Ryan Landrum M.D. Radiologis
== END | disposition home or self-care (01) ==
LOC: RADMAMWWP 13:47
PROVIDERS: ATTEND Family Medicine
DX: Z12.39 Encounter for other screening for malignant neoplasm of breast
CPT/HCPCS: 77063; 77067

== ENCOUNTER 2024-08-10 09:49 | Day surgery (SDC) | payer OTHER ==
[~2024-08-10 09:49] MED LIST: HYDROmorphone 0.5 MG/0.5 ML SYRINGE IVP PRN; MIDAZOLAM 2 MG/2 ML VIAL IV PRN; SCOPOLAMINE 1 MG/72 HR PATCH TRANSDERM ONE; metroNIDAZOLE-NS PMX 500 MG in SALINE 1 100ML.BAG IVPB PRN
[2024-08-10] MEDS: IV FLUID CONTINUATION 1,000 ML IV ONE (10:43)
[2024-08-10] MEDS: LACTATED RINGERS 1,000 ML IV SCH (10:43)
[2024-08-10] MEDS: DEXAMETHASONE SOD PHOSPHATE 4 MG/ML 1 ML VIAL IV ONE (10:49)
[2024-08-10] MEDS: ONDANSETRON 4 MG/2 ML VIAL IVP ONE (10:49)
[2024-08-10] MEDS: ACETAMINOPHEN TAB 500 MG TAB PO PRN (10:52)
[2024-08-10] MEDS: HEPARIN SODIUM,PORCINE 5,000 UNIT/ML 1 ML VIAL SQ PRN (11:07)
--- NOTE | 2024-08-10 12:12 | P.GSHP ---
History of Present Illness H&P Date: 08/10/24 Chief Complaint: Anal fistula 38-year-old female known to our service. Last seen in the office just over a month ago. Refer to recent history and physical. Has complaints of a draining painful nodule left anterior perianal location. Past Medical History Past Medical History: Asthma Additional Past Medical History / Comment(s): kidney stones History of Any Multi-Drug Resistant Organisms: None Reported Past Surgical History: Section, Cholecystectomy Additional Past Surgical History / Comment(s): wisdom teeth extracted, Past Anesthesia/Blood Transfusion Reactions: No Reported Reaction Smoking Status: Never smoker - Past Family History Father Family Medical History: CVA/TIA, Myocardial Infarction ([place]) Additional Family Medical History / Comment(s): [place] at age late 40's Medications and Allergies Home Medications Medication Instructions Recorded Confirmed Type No Known Home Medications 08/06/24 08/06/24 History Allergies Allergy/AdvReac Type Severity Reaction Status Date / Time aspirin Allergy Severe Anaphylaxis Verified 08/06/24 14:35 cough medication Allergy Severe Anaphylaxis Uncoded 08/06/24 14:35 Surgical - Exam Vital Signs Temp Pulse Resp BP Pulse Ox 97.9 F 68 16 107/60 97 08/10/24 10:33 08/10/24 10:33 08/10/24 10:33 08/10/24 10:33 08/10/24 10:33 Physical exam: General: Well-developed, well-nourished HEENT: Normocephalic, sclerae nonicteric Abdomen: Nontender, nondistended Extremities: No edema Neuro: Alert and oriented Rectal: Left anterior fistulous opening with area of induration and tenderness Assessment and Plan (1) Anal fistula Narrative/Plan: 38-year-old female with anal fistula. Will proceed with examination under anesthesia, possible fistulectomy, possible seton placement. Risks reviewed in office. Current Visit: Yes Status: Acute Code(s): K60.30 - ANAL FISTULA, UNSPECIFIED SNOMED Code(s): 595668734
[2024-08-10] MEDS ORDERED: fentaNYL (PF) 50 MCG/ML 2 ML AMP ONE (12:30)
[2024-08-10] MEDS ORDERED: LIDOCAINE 1% INJ 10MG/ML (20 ML MDV) ONE (12:30)
[2024-08-10] MEDS ORDERED: SUCCINYLCHOLINE CHLORIDE 200 MG/10 ML VIAL IV ONE (12:30)
[2024-08-10] MEDS ORDERED: MIDAZOLAM 2 MG/2 ML VIAL ONE (12:30)
[2024-08-10] MEDS ORDERED: PROPOFOL 10 MG/ML 20 ML VIAL IV ONE (12:30)
[2024-08-10] MEDS ORDERED: diphenhydrAMINE 50 MG/ML 1 ML VIAL ONE (12:30)
[2024-08-10] MEDS: BUPIVACAINE (PF) 0.25% 30 ML VIAL SQ ONE (13:06)
[2024-08-10] MEDS: BACITRACIN ZINC 500 UNIT/GM OINT 28.4 GM TUBE TOPICAL ONE (13:06)
[2024-08-10] MEDS: LACTATED RINGERS 1,000 ML IV ONE (13:09)
[2024-08-10 13:39] VITALS: TEMP 97.2
[2024-08-10] MEDS ORDERED: NALOXONE 0.4 MG/ML 1 ML VIAL IV PRN (13:51)
[2024-08-10] MEDS ORDERED: HYDROmorphone 0.5 MG/0.5 ML SYRINGE IVP PRN (13:51)
[2024-08-10] MEDS ORDERED: HYDROcodone/APAP 5-325MG 1 EACH TAB PO PRN (13:51)
--- NOTE | 2024-08-10 13:55 | P.OP ---
Date of Procedure: 08/10/24 Procedure(s) Performed: PREOPERATIVE DIAGNOSIS: Perianal fistula POSTOPERATIVE DIAGNOSIS: Extra sphincteric perianal fistula, anterior anal fissure PROCEDURE: Fistulectomy SURGEON: Jazmine EBL: Chelly luo ANESTHESIA: General COMPLICATIONS: None OPERATIVE PROCEDURE: Patient was placed in the prone jackknife position after general anesthesia was achieved. The patient's left anterior fistulous opening was probed using the smallest flexible metal probe we had. As soon as I advance the probe into the fistulous opening the tract went directly towards the anterior aspect of the anus where there was a fissure present. The opening was easily identified and the probe went into the anal canal. Palpation of the tis remi overlying the probe revealed that there was no palpable sphincteric muscle and this appeared to be all in the subcutaneous tissues. The tract was opened using a combination of scalpel and cautery. A portion of the skin anterior to the fistula was excised. This is only a 3 to 4 mm width of skin. The posterior aspect of the fistula was cauterized. Bleeding was controlled using cautery. Area was localized with Marcaine. Bacitracin was applied to the wound bed. Sterile outer dressing applied. DISPOSITION: Stable to recovery room
[2024-08-10 14:33] VITALS: RESP 18
[2024-08-10 15:45] VITALS: BP 104/57; PULSE 67
== END 2024-08-10 15:34 | disposition home or self-care (01) ==
LOC: OR 09:49
PROVIDERS: ATTEND Surgery
CPT/HCPCS: 81025

== ENCOUNTER 2024-08-22 16:02 | Emergency (ER) | payer OTHER ==
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
[2024-08-22 16:52] VITALS: RESP 18
[2024-08-22] MEDS: KETOROLAC 15 MG/ML 1 ML VIAL IM STA (17:12)
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
[2024-08-22 18:00] VITALS: BP 116/62; PULSE 65; TEMP 98
== END 2024-08-22 18:00 | disposition home or self-care (01) ==
LOC: EC 16:02
CPT/HCPCS: 70450; 72125; 96372; 99284

== ENCOUNTER 2025-01-07 07:21 | Emergency (ER) | payer OTHER ==
--- NOTE | 2025-01-07 07:46 | ED ---
Skin/Abscess/FB HPI - General Chief complaint: Skin/Abscess/Foreign Body Stated complaint: Urogenital Time Seen by Provider: 01/07/25 07:45 Source: patient, RN notes reviewed Mode of arrival: ambulatory Limitations: no limitations - History of Present Illness Initial comments: 39-year-old female presented to the ER for evaluation of possible pelvic absc ess. Patient states on 01-05-2025 she noticed a pea-sized area to her left mon pubis. She states area was exquisitely tender to touch. Today she woke up noticing area of concern has significantly increased in size. It is exquisitely tender to touch. She denies any drainage from area. No fevers or chills. No history of diabetes mellitus. Patient does report a history of an anal fistula which was repaired in July 2024. She denies any change in bowel habits, pain with defecation, urinary complaints, abdominal pain or other complaints at this time. - Related Data Previous Rx's Medication Instructions Recorded oxyCODONE HCL [OxyIR] 5 mg PO Q6H PRN 3 Days #6 tab 08/10/24 Sulfamethox-Tmp 800-160Mg [Bactrim 1 each PO Q12HR #10 tab 08/22/24 Ds] Sulfamethox-Tmp 800-160Mg [Bactrim 1 each PO Q12HR #14 tab 01/07/25 Ds] Allergies Allergy/AdvReac Type Severity Reaction Status Date / Time aspirin Allergy Severe Anaphylaxis Verified 01/07/25 07:26 cough medication Allergy Severe Anaphylaxis Uncoded 01/07/25 07:26 Review of Systems ROS Statement: Those systems with pertinent positive or pertinent negative responses have been documented in the HPI. ROS Other: All systems not noted in ROS Statement are negative. Past Medical History Past Medical History: Asthma Additional Past Medical History / Comment(s): kidney stones History of Any Multi-Drug Resistant Organisms: None Reported Past Surgical History: Section, Cholecystectomy Additional Past Surgical History / Comment(s): wisdom teeth extracted, Past Anesthesia/Blood Transfusion Reactions: No Reported Reaction Past Psychological History: No Psychological Hx Reported Smoking Status: Never smoker Past Alcohol Use History: None Reported Past Drug Use History: Marijuana - Past Family History Father Family Medical History: CVA/TIA, Myocardial Infarction ([place]) Additional Family Medical History / Comment(s): [place] at age late 40's General Exam Limitations: no limitations General appearance: alert, in no apparent distress Respiratory exam: Present: normal lung sounds bilaterally. Absent: respiratory distress, wheezes, rales, rhonchi, stridor Cardiovascular Exam: Present: regular rate, normal rhythm, normal heart sounds. Absent: systolic murmur, diastolic murmur, rubs, gallop, clicks GI/Abdominal exam: Present: soft, normal bowel sounds. Absent: distended, t enderness, guarding, rebound, rigid Neurological exam: Present: alert, oriented X3, CN II-XII intact Skin exam: Present: warm, dry, intact, normal color, other (3 cm area of induration with overlying erythema and tenderness to left mons pubis) Course Vital Signs 01/07/25 01/07/25 07:23 08:36 Temperature 98.4 F 98.2 F Pulse Rate 86 89 Respiratory 20 22 Rate Blood Pressure 124/75 130/70 O2 Sat by Pulse 97 99 Oximetry Procedures - Incision & Drainage Consent Obtained: verbal consent Indication: abscess Site: other (mon pubis) Size (cm): 3 Anesthetic Used: lidocaine 1%, without epi Amount (mLs): 3 I&D Cleaning Method: Chloroprep Sterile Field Used?: Yes Scalpel Used: #11 Ultrasound used: No Needle Aspiration Performed?: Yes I&D Drainage Obtained: Pus, Blood Loculation Noted: probing needed to break Culture Obtained?: Yes Patient Tolerated Procedure: well Medical Decision Making - Medical Decision Making Was pt. sent in by a medical professional or institution (Dr. PA, STRAINER CLEANER, urgent care, hospital, or [facility]...) When possible be specific @ -No Did you speak to anyone other than the patient for history (EMS, parent, family, police, friend...)? What history was obtained from this source @ -No Did you review nursing and triage notes (agree or disagree)? Why? @ -I reviewed and agree with nursing and triage notes Were old charts reviewed (outside hosp., previous admission, EMS record, old EKG, old radiological studies, urgent care reports/EKG's, [facility] records)? Report findings @ -No old charts were reviewed Differential Diagnosis (chest pain, altered mental status, abdominal pain women, abdominal pain men, vaginal bleeding, weakness, fever, dyspnea, syncope, headache, dizziness, GI bleed, back pain, seizure, CVA, palpatations, mental health, musculoskeletal)? @ -Abscess, cyst, ingrown hair... This list is not meant to be all-inclusive EKG interpreted by me (3pts min.). @ -None done X-rays interpreted by me (1pt min.). @ -None done CT interpreted by me (1pt min.). @ -None done U/S interpreted by me (1pt. min.). @ -None done What testing was considered but not performed or refused? (CT, X-rays, U/S, labs)? Why? @ -None What meds were considered but not given or refused? Why? @ -None Did you discuss the management of the patient with other professionals (professionals i.e. , PA, STRAINER CLEANER, lab, RT, psych nurse, social service assistant, dimensional inspector, teacher, juvenile probation officer, caseworker intake)? Give summary @ -No Was smoking cessation discussed for >3mins.? @ -No Was critical care preformed (if so, how long)? @ -No Were there social determinants of health that impacted care today? How? (Homelessness, low income, unemployed, alcoholism, drug addiction, transportation, low edu. Level, literacy, decrease access to med. care, custodial, rehab)? @ -No Was there de-escalation of care discussed even if they declined (Discuss DNR or withdrawal of care, Hospice)? DNR status @ -No What co-morbidities impacted this encounter? (DM, HTN, Smoking, COPD, CAD, Cancer, CVA, ARF, Chemo, Hep., AIDS, mental health diagnosis, sleep apnea, morbid obesity)? @ -None Was patient admitted / discharged? Hospital course, mention meds given and route, prescriptions, significant lab abnormalities, going to OR and other pertinent info. @ -Discharge. 39-year-old female presented to the ER for evaluation of left groin abscess. Vitals within acceptable limits. Exam remarkable for a 3 cm area of induration with overlying erythema and exquisite tenderness to palpation to left mons pubis . Needle aspiration performed prior to incision made. There is blood and purulent drainage noted. Wound culture obtained. Patient was started on Bactrim for infection prophylaxis. I advised patient to use heat packs, massage to express any further drainage. I also recommended patient fo llow-up closely with PCP. Patient reports she has follow-up on 01-09-2025. Patient is stable for discharge at this time. Return parameters discussed. Patient verbally expressed understanding and agreement with care plan. Case discussed with ED attending, Dr. Parrish. Undiagnosed new problem with uncertain prognosis? @ -No Drug Therapy requiring intensive monitoring for toxicity (Heparin, Nitro, Insulin, Cardizem)? @ -No Were any procedures done? @ -Yes, I&D Diagnosis/symptom? @ -Abscess Acute, or Chronic, or Acute on Chronic? @ -Acute Uncomplicated (without systemic symptoms) or Complicated (systemic symptoms)? @ -Uncomplicated Side effects of treatment? @ -No Exacerbation, Progression, or Severe Exacerbation? @ -No Poses a threat to life or bodily function? How? (Chest pain, [place], [place], pneumonia, PE, COPD, DKA, ARF, appy, cholecystitis, CVA, Diverticulitis, Homicidal, Suicidal, threat to staff... and all critical care pts) @ -No Disposition Clinical Impression: Abscess Disposition: HOME SELF-CARE Condition: Stable Instructions (If sedation given, give patient instructions): Abscess Incision and Drainage (ED) Additional Instructions: Take antibiotics as prescribed. Follow-up with PCP as scheduled on Tuesday. Return to the ER for any new or worsening concerns. Prescriptions: Sulfamethox-Tmp 800-160Mg [Bactrim Ds] 1 each PO Q12HR #14 tab Is patient prescribed a controlled substance at d/c from ED?: No Referrals: Feliciano Crawley DO [Primary Care Provider] - 1-2 days Time of Disposition: 08:17
[2025-01-07] MEDS: LIDOCAINE 1% INJ 10MG/ML (20 ML MDV) SQ ONE (07:57)
[2025-01-07 08:37] VITALS: BP 130/70; PULSE 89; RESP 22; TEMP 98.2
== END 2025-01-07 08:53 | disposition home or self-care (01) ==
LOC: EC 07:21
DX: N73.9 Female pelvic inflammatory disease, unspecified (principal); Z90.49 Acquired absence of other specified parts of digestive tract; Z88.6 Allergy status to analgesic agent; Z88.8 Allergy status to other drugs, medicaments and biological substances
CPT/HCPCS: 87070; 87205; 87077; 87186; 99282; 10060; J2003

== ENCOUNTER 2025-05-15 19:50 | Emergency (ER) | payer OTHER ==
[2025-05-15 20:02] VITALS: RESP 18
[2025-05-15] MEDS: ACETAMINOPHEN TAB 500 MG TAB PO STA (20:26)
--- NOTE | 2025-05-15 20:44 | ED ---
ENT HPI - General Chief complaint: ENT Stated complaint: Fever Time Seen by Provider: 05/15/25 20:41 Source: patient, RN notes reviewed Mode of arrival: ambulatory Limitations: no limitations - History of Present Illness Initial comments: 39-year-old female presenting for sore throat x 1 day with associated fever. States yesterday morning she felt a "tickle" in her throat that has worsened in severity over the course of the day. Denies nasal congestion or cough. She is able to swallow and tolerate orals well. States she is prone to strep throat. States she does believe she had a sick contact at work. States she has a history of asthma no other medical conditions. - Related Data Previous Rx's Medication Instructions Recorded oxyCODONE HCL [OxyIR] 5 mg PO Q6H PRN 3 Days #6 tab 08/10/24 Sulfamethox-Tmp 800-160Mg [Bactrim 1 each PO Q12HR #10 tab 08/22/24 Ds] Sulfamethox-Tmp 800-160Mg [Bactrim 1 each PO Q12HR #14 tab 01/07/25 Ds] Amoxicillin 500 mg PO Q12H 10 Days #20 capsule 05/15/25 Allergies Allergy/AdvReac Type Severity Reaction Status Date / Time aspirin Allergy Severe Anaphylaxis Verified 05/15/25 20:02 cough medication Allergy Severe Anaphylaxis Uncoded 05/15/25 20:02 Review of Systems ROS Statement: Those systems with pertinent positive or pertinent negative responses have been documented in the HPI. ROS Other: All systems not noted in ROS Statement are negative. Past Medical History Past Medical History: Asthma Additional Past Medical History / Comment(s): kidney stones History of Any Multi-Drug Resistant Organisms: MRSA Date of last positivie culture/infection: 01/07/25 MDRO Source:: pelvis Past Surgical History: Section, Cholecystectomy Additional Past Surgical History / Comment(s): wisdom teeth extracted, Past Anesthesia/Blood Transfusion Reactions: No Reported Reaction Past Psychological History: No Psychological Hx Reported Smoking Status: Never smoker Past Alcohol Use History: None Reported Past Drug Use History: Marijuana - Past Family History Father Family Medical History: CVA/TIA, Myocardial Infarction ([place]) Additional Family Medical History / Comment(s): [place] at age late 40's General Exam Limitations: no limitations General appearance: alert, in no apparent distress Head exam: Present: atraumatic, normocephalic, normal inspection Eye exam: Present: normal appearance, PERRL, EOMI. Absent: scleral icterus, conjunctival injection, periorbital swelling ENT exam: Present: mucous membranes moist. Absent: normal exam, normal oropharynx (Tonsils are 2+ and erythematous bilaterally with bilateral exudate, uvula midline) Neck exam: Present: lymphadenopathy (Anterior cervical lymphadenopathy). Absent: normal inspection, tenderness, meningismus Respiratory exam: Present: normal lung sounds bilaterally. Absent: respiratory distress, wheezes, rales, rhonchi, stridor Cardiovascular Exam: Present: regular rate, normal rhythm, normal heart sounds. Absent: systolic murmur, diastolic murmur, rubs, gallop, clicks Neurological exam: Present: alert, oriented X3 Psychiatric exam: Present: normal affect, normal mood Skin exam: Present: warm, dry, intact, normal color. Absent: rash Course Vital Signs 05/15/25 05/15/25 20:00 21:26 Temperature 102.4 F H 100.5 F H Pulse Rate 85 81 Respiratory 18 18 Rate Blood Pressure 115/77 117/78 O2 Sat by Pulse 98 99 Oximetry Medical Decision Making - Medical Decision Making Was pt. sent in by a medical professional or institution (, PA, ADMIN DIR, urgent care, hospital, or custodial...) When possible be specific @ -No Did you speak to anyone other than the patient for history (EMS, parent, family, police, friend...)? What history was obtained from this source @ -No Did you review nursing and triage notes (agree or disagree)? Why? @ -I reviewed and agree with nursing and triage notes Were old charts reviewed (outside hosp., previous admission, EMS record, old EKG, old radiological studies, urgent care reports/EKG's, custodial records)? Report findings @ -No old charts were reviewed Differential Diagnosis (chest pain, altered mental status, abdominal pain women, abdominal pain men, vaginal bleeding, weakness, fever, dyspnea, syncope, headache, dizziness, GI bleed, back pain, seizure, CVA, palpatations, mental health, musculoskeletal)? @ -Strep pharyngitis, COVID-19, influenza, RSV, viral URI, retropharyngeal abscess EKG interpreted by me (3pts min.). @ -None X-rays interpreted by me (1pt min.). @ -None done CT interpreted by me (1pt min.). @ -None done U/S interpreted by me (1pt. min.). @ -None done What testing was considered but not performed or refused? (CT, X-rays, U/S, labs)? Why? @ -None What meds were considered but not given or refused? Why? @ -None Did you discuss the management of the patient with other professionals (professionals i.e. DrWilmer, PA, ADMIN DIR, lab, RT, psych nurse, social worker palliative care, senior quality manager, teacher, traffic police officer, piano case maker)? Give summary @ -No Was smoking cessation discussed for >3mins.? @ -No Was critical care preformed (if so, how long)? @ -No Were there social determinants of health that impacted care today? How? (Homelessness, low income, unemployed, alcoholism, drug addiction, transportation, low edu. Level, literacy, decrease access to med. care, long term, rehab)? @ -No Was there de-escalation of care discussed even if they declined (Discuss DNR or withdrawal of care, Hospice)? DNR status @ -No What co-morbidities impacted this encounter? (DM, HTN, Smoking, COPD, CAD, Cancer, CVA, ARF, Chemo, Hep., AIDS, mental health diagnosis, sleep apnea, morbid obesity)? @ -None Was patient admitted / discharged? Hospital course, mention meds given and route, prescriptions, significant lab abnormalities, going to OR and other pertinent info. @ -Discharge. 39-year-old female presenting for sore throat x 1 day with associated fever. No difficulty breathing or swallowing. Patient is febrile at 102.4. Provided with Tylenol and ibuprofen. Patient is positive for strep pharyngitis. Negative for COVID-19, influenza, and RSV. Provided with dose of Decadron. Discussed diagnosis of strep pharyngitis. Appropriate return precautions and supportive care discussed. Prescribed outpatient course of amoxicillin. Case was discussed with my ED attending Dr. Eddy Undiagnosed new problem with uncertain prognosis? @ -No Drug Therapy requiring intensive monitoring for toxicity (Heparin, Nitro, Insulin, Cardizem)? @ -No Were any procedures done? @ -No Diagnosis/symptom? @ -Strep pharyngitis Acute, or Chronic, or Acute on Chronic? @ -Acute Uncomplicated (without systemic symptoms) or Complicated (systemic symptoms)? @ -Uncomplicated Side effects of treatment? @ -No Exacerbation, Progression, or Severe Exacerbation? @ -No Poses a threat to life or bodily function? How? (Chest pain, [place], [place], pneumonia, PE, COPD, DKA, ARF, appy, cholecystitis, CVA, Diverticulitis, Homicidal, Suicidal, threat to staff... and all critical care pts) @ -No - Lab Data Lab Results 05/15/25 05/15/25 Range/Units 20:19 20:19 Influenza Type A (PCR) Not Detected (Not Detectd) Influenza Type B (PCR) Not Detected (Not Detectd) RSV (PCR) Not Detected (Not Detectd) SARS-CoV-2 (PCR) Not Detected (Not Detectd) Group A Strep (PCR) DETECTED A (Not Detectd) Disposition Clinical Impression: Strep pharyngitis Disposition: HOME SELF-CARE Condition: Stable Instructions (If sedation given, give patient instructions): Strep Throat (ED) Additional Instructions: Take amoxicillin twice daily for 10 days. Drink plenty of fluids. Replace your toothbrush at the end of the 10-day course. Alternate Tylenol and ibuprofen every 6 hours for fever. Please return to the Emergency Department if symptoms worsen or any other concerns. Prescriptions: Amoxicillin 500 mg PO Q12H 10 Days #20 capsule Is patient prescribed a controlled substance at d/c from ED?: No Referrals: Feliciano Crawley DO [Primary Care Provider] - 1-2 days Time of Disposition: 21:51
[2025-05-15] MEDS: IBUPROFEN 800 MG TAB PO STA (20:52)
[2025-05-15 21:17] LABS: RSV Not Detected (Not Detectd)
[2025-05-15 21:26] VITALS: BP 117/78; PULSE 81; TEMP 100.5
[2025-05-15] MEDS: DEXAMETHASONE SOD PHOSPHATE 10 MG/ML 1 ML VIAL PO ONE (21:37)
[2025-05-15] MEDS: AMOXICILLIN 500 MG CAP PO STA (21:55)
== END 2025-05-15 22:05 | disposition home or self-care (01) ==
LOC: EC 19:50
DX: J02.0 Streptococcal pharyngitis (principal); B95.0 Streptococcus, group A, as the cause of diseases classified elsewhere; Z88.6 Allergy status to analgesic agent; Z88.8 Allergy status to other drugs, medicaments and biological substances
CPT/HCPCS: 87636; 87651; 99283